=== PATIENT | male | born 1990 | race Caucasian/White ===

== ENCOUNTER 2020-10-01 13:18 | Emergency (ER) | payer OTHER, SELFPAY ==
[2020-10-01 13:25] VITALS: BP 152/100; PULSE 88; RESP 16; TEMP 37.2; O2SAT 97; BMI 29.9
--- NOTE | 2020-10-01 13:46 | ED.MALEGU ---
HPI - Male Genitourinary General Chief complaint: Urogenital-Male Stated complaint: BURNING UPON URINATION Time Seen by Provider: 10/01/20 13:46 Source: patient Mode of arrival: ambulatory Limitations: no limitations History of Present Illness HPI Narrative: 30-year-old male came in for evaluation for dysuria. Dysuria started since this morning, no penile discharge, never had UTI in past, patient is sexually active with 2 partners with concern of STD, rash or lesion on the penis. No fever, no chills. No abdominal pain, no flank pain. Related Data Allergies Allergy/AdvReac Type Severity Reaction Status Date / Time No Known Allergies Allergy Verified 10/01/20 14:24 Review of Systems Review of Systems: All other systems are reviewed and are negative Constitutional: Reports as per HPI and Reports no additional constitutional complaints Eyes: Reports as per HPI and Reports no additional eye complaints Reports system reviewed and no additional complaints, except as documented Cardiovascular: Reports as per HPI and Reports no additional cardiovascular complaints Respiratory: Reports as per HPI and Reports no additional respiratory complaints Gastrointestinal: Reports as per HPI and Reports no additional gastrointestinal complaints Genitourinary: Reports no additional female genitourinary complaints Musculoskeletal: Reports no additional musculoskeletal complaints Skin/Breast: Reports system reviewed and no additional complaints, except as docu Psychiatric: Reports no additional psychiatric complaints Endocrine: Reports no additional endocrine complaints Hematologic/Lymphatic: Reports no additional hematologic/lymphatic complaints Allergic/Immunologic: Reports no additional allergic/immunologic complaints Reports system reviewed and no additional complaints, except as documented and Reports Abnormal speech present [facility] Social History Social History Advance Directives: No Advance Directives Information Provided: No Physical Exam Vital Signs: Vital Signs: Last Vital Signs Temp 98.9 F 10/01/20 13:25 Pulse 88 10/01/20 13:25 Resp 16 10/01/20 13:25 BP 152/100 H 10/01/20 13:25 Pulse Ox 97 10/01/20 13:25 Body Mass Index 29.9 Vital signs have been reviewed as appeared to be correct. Blood pressure normal. Heart rate normal. Respiration rate normal. Temperature normal. Oxygen saturation normal. Appearance: Alert. Oriented X3. No acute distress. Head: Normal external exam. Normocephalic. Atraumatic. No Ly signs noted. No raccoon eyes noted Eyes: PERRLA. EOMI. Conjunctiva and sclera normal. Eyelids normal. ENT: TM's Normal. Pharynx normal. Uvula midline. Moist mucous membranes. No trismus noted. No drooling noted. No muffled voice noted. Neck: Normal inspection. Neck supple. FROM. No adenopathy. Thyroid Normal. No meningeal signs. No neck mass noted. CVS: Normal heart rate and rhythm. Heart sound normal. No murmurs noted. Pulses normal throughout. Respiratory: No respiratory distress. Painless inspiration. Breath sounds normal. No wheezes/rales/rhonchi noted. Chest nontender. No accessory muscle usage noted or decreased air movement noted. Abdomen: Soft and nontender. Bowel sounds normal in all 4 quadrants. No distention noted. No organomegaly noted. No visible injury noted. Back: No CVA tenderness. Full range of motion noted. Skin: Skin warm and dry. Normal skin color. Normal skin turgor. No rashes/lesions/lacerations noted. Extremities: No lower extremity edema. Extremities exhibit normal range of motion. Extremities nontender. Neuro: Oriented X 3. No motor deficit. No sensory deficit. Reflexes normal. Course Course Course Narrative: Assessment and plan. 30-year-old male came in with dysuria, patient had 2 sexual partner, no penile discharge or discrete sign or symptoms for STDs, will wait for urine test for STDs before treatment. [facility] - Male Genitourinary Lab Data Attestation: I reviewed the patient's lab results. Labs: Lab Results 10/01/20 Range/Units 14:10 Urine Color YELLOW Urine Appearance HAZY Urine pH 8.5 H (5.0-8.0) Ur Specific [place] 1.015 (1.005-1.025) Urine Protein 1+ H (NEG-TRACE) MG/DL Urine Glucose (UA) NEG (NEG) MG/DL Urine Ketones NEG (NEG) MG/DL Urine Blood NEG (NEG) Urine Nitrite NEG (NEG) Ur Leukocyte Esterase NEG (NEG) Urine RBC 0 (0) /HPF Urine WBC 1-4 (0-4) /HPF Ur Squamous Epith Cells TRACE /LPF Amorphous Sediment 1+ /LPF Urine Bacteria Not Reportable Urine Mucus 1+ /LPF Discharge Plan Discharge Clinical Impression: Dysuria Patient Disposition: Home, Self-Care Instructions: Dysuria (ED) Referrals: Raheem Nam MD [Primary Care Provider] - 2 days
[2020-10-01 14:17] LABS: Glucose Urine UA NEG (NEG); Leukocyte Esterase Urine NEG (NEG); Nitrite Urine NEG (NEG); PH 8.5 (5.0-8.0); Specific Gravity - Urine 1.015 (1.005-1.025); Urine Blood NEG (NEG); Urine Ketones NEG (NEG)
[2020-10-01 14:19] LABS: Appearance Urine HAZY; Color Urine YELLOW; Urine Protein 1+ MG/DL (NEG-TRACE)
[2020-10-01 14:30] LABS: Amorphous Sediment Urine 1+ /LPF; Mucus Urine 1+ /LPF; RBC Urine 0 /HPF (0); Squamous Epithelial Cell Urine TRACE /LPF
[2020-10-01 18:33] LABS: CT PCR NOT DETECTED (Not Detect.); NG PCR DETECTED (Not Detect.)
== END 2020-10-01 15:28 | disposition home or self-care (01) ==
PROVIDERS: Emergency Provider Emergency Medicine; PCP Internal Medicine
DX: R30.0 Dysuria (principal)
CPT/HCPCS: 81001; 87491; 87591; 99284

== ENCOUNTER 2020-10-02 23:36 | Emergency (ER) | payer OTHER, SELFPAY ==
--- NOTE | 2020-10-03 01:29 | ED_ITS ---
HPI - Male Genitourinary General Stated complaint: ?uti Time Seen by Provider: 10/03/20 00:14 Source: patient Mode of arrival: ambulatory Limitations: no limitations History of Present Illness MD Complaint: penile discharge and dysuria Onset (ago): day(s) (2) Duration: progressively worsening Location: penis Severity: mild Quality: burning Relieving factors: urination Exacerbating factors: none Context: new sexual partner Associated symptoms: Reports discharge and dysuria Related Data Previous Rx's Medication Instructions Recorded doxycycline hyclate 100 mg PO BID 10 Days #20 cap 10/03/20 Allergies Allergy/AdvReac Type Severity Reaction Status Date / Time No Known Allergies Allergy Verified 10/01/20 14:24 Review of Systems Review of Systems: Constitutional : No Weight loss, No Fever, No Chills ENT/Mouth : No sore throat, No Rhinorrhea Eyes: No Swelling, No Redness Cardiovascular : No Chest Pain, No SOB Respiratory : No Cough, No Sputum Gastrointestinal : Positive Nausea, Positive Vomiting Genitourinary : pos Dysuria, pos drainage Musculoskeletal : No joint pain, No Myalgias, No Joint Swelling Skin : No Skin Lesions, No rash Neuro : No Weakness, No Numbness Psych : No Anxiety/Panic, No Depression PMFSH Past Medical History Attestation statement: The following information was validated with the patient. Medical History (Updated 10/03/20 @ 01:40 by Danisha Patel DO) No active medical problems Social History Social History (Updated 10/03/20 @ 01:41 by Danisha Patel DO) Smoking Status: Never smoker Advance Directives: No Advance Directives Information Provided: No Physical Exam Vital Signs: Appearance: Alert. Oriented X3. No acute distress. Eyes: Pupils equal, round and reactive to light. ENT: Pharynx normal. Neck: Normal inspection. CVS: Normal heart rate and rhythm. Respiratory: No respiratory distress. Abdomen: Soft and nontender. Skin: Skin warm and dry. Normal skin color. Extremities: No lower extremity edema. Neuro: Oriented X 3. No motor deficit. No sensory deficit. MDM - Male Genitourinary MDM Narrative Medical decision making narrative: 30 yo male unprotected sex 2 weeks ago here with dysuria and penile discharge - will obtain UA and G+C, treat for gonorrhea and chlamydia, given instructions [facility] Discharge Plan Discharge Clinical Impression: Exposure to STD Patient Disposition: Home, Self-Care Instructions: Sexually Transmitted Diseases (ED) Additional Instructions: return to ED for any worsening symptoms or concerns you were treated for gonorrhea with a shot, take all antibiotics to clear poss ible chlamydia, practice safe sex, inform partners for further testing including HIV [facility] Prescriptions: New doxycycline hyclate 100 mg capsule 100 mg PO BID 10 Days Qty: 20 RF: 0 Stand Alone Forms: Work/School Release
[2020-10-03 01:46] VITALS: BP 163/115; PULSE 81; RESP 16; TEMP 37; O2SAT 98; BMI 29.9
[2020-10-03 01:50] LABS: Glucose Urine UA NEG (NEG); Leukocyte Esterase Urine NEG (NEG); Nitrite Urine NEG (NEG); Specific Gravity - Urine 1.025 (1.005-1.025); Urine Blood NEG (NEG); Urine Ketones NEG (NEG); Urine Protein TRACE MG/DL (NEG-TRACE)
[2020-10-03 01:51] LABS: Appearance Urine CLEAR; Color Urine YELLOW
[2020-10-03] MEDS: cefTRIAXone sodium 500 MG, Lidocaine HCl 1 % MPF 1 ML IM (02:00)
[2020-10-03 07:45] LABS: CT PCR NOT DETECTED (Not Detect.); NG PCR DETECTED (Not Detect.)
== END 2020-10-03 02:09 | disposition home or self-care (01) ==
PROVIDERS: Emergency Provider Emergency Medicine
DX: R30.0 Dysuria (principal); Z20.2 Contact with and (suspected) exposure to infections with a predominantly sexual mode of transmission; R36.9 Urethral discharge, unspecified; Z79.899 Other long term (current) drug therapy
CPT/HCPCS: 81003; 87491; 87591; 99284; J0696

== ENCOUNTER 2020-10-25 19:34 | Emergency (ER) | payer OTHER, SELFPAY ==
--- NOTE | ~2020-10-25 | XR_ITS ---
EXAMINATION: XR CHEST CLINICAL INFORMATION: Fever COMPARISON: 04/15/2018 TECHNIQUE: Frontal view of the chest was obtained. FINDINGS: Lung volumes are symmetric. No focal consolidation is seen. No evidence of pneumothorax, pleural effusion, or pulmonary edema. The cardiomediastinal contour is unremarkable. No acute osseous findings are seen. XR/XR chest 1V IMPRESSION: No acute cardiopulmonary findings.
[2020-10-25 21:13] VITALS: BP 181/119; PULSE 88; RESP 18; TEMP 36.8; O2SAT 98; BMI 29.9
[2020-10-25 21:43] LABS: MANUAL DIFF FLAG NO
--- NOTE | 2020-10-25 21:44 | PC.NURSE ---
pt brought to room and placed on product coordinator. NSR 84 bpm. pt not experiencing any chest discomfort or palpitations. pt reports that he has been eating fast food for the past 2 weeks.
[2020-10-25 21:45] LABS: Basophils Percent Auto 0.5 % (0-2); Eosinophils Absolute Auto 0.1 X10*3/uL (0.0-0.4); Eosinophils Percent Auto 1.8 % (0-4); Hematocrit 52.5 % (42-52); Hemoglobin 16.5 g/dl (14.0-18.0); Imm Gran Abs Auto 0.08 X10*3/uL (0.00-0.03); Lymphocytes Absolute Auto 1.2 X10*3/uL (1.2-4.9); Lymphocytes Percent Auto 15.9 % (20-40); Mean Corpuscular HGB Conc 31.4 g/dl (31.0-36.0); Mean Corpuscular Hemoglobin 25.2 pg (27.0-33.0); Mean Corpuscular Volume 80.2 fL (80-98); Mean Platelet Volume 9.8 fL (9.4-12.4); Monocytes Absolute Auto 0.4 X10*3/uL (0.1-1.2); Monocytes Percent Auto 5.2 % (2-11); Neutrophils Absolute Auto 5.9 X10*3/uL (2.0-8.3); Neutrophils Percent Auto 75.6 % (45-73); Platelet Count 293 X10*3/uL (160-400); Red Blood Count 6.55 X10*6/uL (4.60-5.80); Red Cell Distribution Width 14.5 % (11.0-16.0); White Blood Count 7.7 X10*3/uL (4.8-10.8)
--- NOTE | 2020-10-25 21:48 | ECG_ITS ---
Test Reason : HIGH BLOOD PRESSURE Blood Pressure : / mmHG Vent. Rate : 084 BPM Atrial Rate : 084 BPM P-R Int : 170 ms QRS Dur : 080 ms QT Int : 348 ms P-R-T Axes : 051 037 026 degrees QTc Int : 411 ms Normal sinus rhythm Nonspecific T wave abnormality Abnormal ECG No previous ECGs available Referred By: Generic ED Physician Electronically Signed By:JG OSEGUERA MD
[2020-10-25 21:49] VITALS: BP 178/22; PULSE 85; RESP 14; O2SAT 99
--- NOTE | 2020-10-25 22:07 | PC.NURSE ---
EKG documented for ID #[id number]
[2020-10-25 22:10] LABS: Anion Gap 13 (12-20); Blood Urea Nitrogen 14 mg/dL (9-16); Calcium 9.7 mg/dL (8.4-10.2); Carbon Dioxide 26 mmol/L (22-29); Chloride 105 mmol/L (96-108); Creatinine Clr Calc Pharmacy 98.3; Estimated Glomerular Filt Rate > 60; Glucose Random 96 mg/dL (60-115); Potassium 4.3 mmol/L (3.3-5.1); Sodium 140 mmol/L (135-145)
[2020-10-25 22:17] LABS: Troponin-I High Sensitivity < 3.5 ng/L (<3.5-35.0)
--- NOTE | 2020-10-25 22:18 | ED_ITS ---
HPI - General Adult General Chief complaint: General Medical Stated complaint: high bp Time Seen by Provider: 10/25/20 22:17 History of Present Illness HPI narrative: Patient is a 30-year-old male presented today while trying to get a COVID vaccine patient was noted by urgent care to have an elevated blood pressure he has no symptoms. He denies recreational drug use. Patient came to the emergency department from the urgent care. Patient received the Jannsen COVID vaccine from urgent care Related Data Previous Rx's Medication Instructions Recorded doxycycline hyclate 100 mg PO BID 10 Days #20 cap 10/03/20 amlodipine 5 mg PO DAILY #10 tab 10/26/20 Allergies Allergy/AdvReac Type Severity Reaction Status Date / Time No Known Allergies Allergy Verified 10/01/20 14:24 Review of Systems Review of Systems: Constitutional: No Weight loss, No Fever, No Chills, No Night Sweats, No Fatigue, No Malaise ENT/Mouth: No Hearing loss, No Ear Pain, No Nasal Congestion, No Sinus Pain, No Hoarseness, No sore throat, No Rhinorrhea, No Swallowing Difficulty Eyes: No Eye Pain, No Swelling, No Redness, No Foreign Body, No Discharge, No Vision Changes Cardiovascular: No Chest Pain, No SOB, No Dyspnea on Exertion, No Orthopnea, No Edema, No Palpitations Respiratory: No Cough, No Sputum, No Wheezing, No Smoke Exposure, No Dyspnea Gastrointestinal: No Nausea, No Vomiting, No Diarrhea, No Constipation, No abdominal Pain, No Hematochezia, No Melena Genitourinary: no irregular bleeding, No Dysuria, No Urinary Frequency, No Hematuria, No Urinary Incontinence, No Urgency, No Flank Pain, No Urinary Flow Changes, No Hesitancy Musculoskeletal: No joint pain, No Myalgias, No Joint Swelling Skin: No Skin Lesions, No rash Neuro: No Weakness, No Numbness, No Paresthesias, No Loss of Consciousness, No Dizziness, No Headache Psych: No Anxiety/Panic, No Depression, No SI/HI/AH/VH, No Social Issues, Heme/Lymph: No Bruising, No Bleeding,No Lymphadenopathy Endocrine: No Polyuria, No Polydipsia, No Temperature Intolerance PMFSH Past Medical History Medical History No active medical problems No known health problems Social History Social History Advance Directives: No Advance Directives Information Provided: Yes Physical Exam Vital Signs: Vital Signs: Last Vital Signs Temp 100.3 F 10/26/20 04:55 Pulse 94 10/26/20 04:55 Resp 24 H 10/26/20 04:55 BP 143/93 H 10/26/20 04:55 Pulse Ox 93 10/26/20 04:55 Body Mass Index 29.9 Appearance: Alert. Oriented X3. No acute distress. Eyes: Pupils equal, round and reactive to light. ENT: Pharynx normal. Neck: Normal inspection. Neck supple. No lymph nodes noted. No crepitus CVS: Normal heart rate and rhythm. Pulses normal. Normal S1 and S2 Respiratory: No respiratory distress. Breath sounds normal. No Wheezing. No rales Abdomen: Soft and nontender. No rigidity. No distention. good BS x4 Skin: Skin warm and dry. Normal skin color. Normal skin turgor. Extremities: No lower extremity edema. Neurovascular intact to all extremities. No Lacerations. No Rash Neuro: Oriented X 3. No motor deficit. No sensory deficit. Moving all extermities. No slurred speech Medical Decision Making MDM Narrative Medical decision making narrative: Well-appearing no acute distress. Patient blood pressure is elevated. Totally asymptomatic. Patient's electrolytes are normal. EKG consistent with having right ventricular hypertrophy. Will give a dose amlodipine will monitor for the next 2 hours. Patient has a primary physician will suggest patient get close follow-up in the next 24-48 hours. While in the emergency department patient developed a fever up to 102. Patient had the Kush and Kush COVID vaccine. His platelet is normal. Given this is not an MRI and a base vaccine. Less likely patient had myocarditis versus pericarditis. Patient's troponin is negative and other indication patient did not have myocarditis. Patient is well appearing after Tylenol Motrin the temperature came down. Patient's blood pressure also came down. Will start patient on low dose of blood pressure medication. Will have patient closely follow with his primary physician. Currently in stable condition. Lab Data Result diagrams: 10/25/20 21:37 10/25/20 21:37 Labs: Lab Results 06/09/21 06/09/21 06/09/21 Range/Units 21:37 21:37 21:37 WBC 7.7 (4.8-10.8) X10*3/uL RBC 6.55 H (4.60-5.80) X10*6/uL Hgb 16.5 (14.0-18.0) g/dl Hct 52.5 H (42-52) % MCV 80.2 (80-98) fL MCH 25.2 L (27.0-33.0) pg MCHC 31.4 (31.0-36.0) g/dl RDW 14.5 (11.0-16.0) % Plt Count 293 (160-400) X10*3/uL MPV 9.8 (9.4-12.4) fL Immature Gran % (Auto) 1.0 H (0.0-0.4) % Neut % (Auto) 75.6 H (45-73) % Lymph % (Auto) 15.9 L (20-40) % [place] % (Auto) 5.2 (2-11) % Eos % (Auto) 1.8 (0-4) % Baso % (Auto) 0.5 (0-2) % Lymph # (Auto) 1.2 (1.2-4.9) X10*3/uL [place] # (Auto) 0.4 (0.1-1.2) X10*3/uL Eos # (Auto) 0.1 (0.0-0.4) X10*3/uL Baso # (Auto) 0.0 (0.0-0.2) X10*3/uL Abs Immat Gran (auto) 0.08 H (0.00-0.03) X10*3/uL Absolute Neuts (auto) 5.9 (2.0-8.3) X10*3/uL Absolute Nucleated RBC 0.000 (0.0-0.012) X10*3/uL Nucleated RBC % (auto) 0.0 (0.0-0.2) /100WBC Sodium 140 (135-145) mmol/L Potassium 4.3 (3.3-5.1) mmol/L Chloride 105 (96-108) mmol/L Carbon Dioxide 26 (22-29) mmol/L Anion Gap 13 (12-20) BUN 14 (9-16) mg/dL Creatinine 1.10 (0.5-1.4) mg/dL Estim Creat Clear Calc 98.3 Estimated GFR > 60 Random Glucose 96 (60-115) mg/dL Calcium 9.7 (8.4-10.2) mg/dL Troponin I High Sens < 3.5 (<3.5-35.0) ng/L COVID-19 ([facility]) (Negative) COVID-19 Clin Com 10/26/20 Range/Units 02:27 WBC (4.8-10.8) X10*3/uL RBC (4.60-5.80) X10*6/uL Hgb (14.0-18.0) g/dl Hct (42-52) % MCV (80-98) fL MCH (27.0-33.0) pg MCHC (31.0-36.0) g/dl RDW (11.0-16.0) % Plt Count (160-400) X10*3/uL MPV (9.4-12.4) fL Immature Gran % (Auto) (0.0-0.4) % Neut % (Auto) (45-73) % Lymph % (Auto) (20-40) % [place] % (Auto) (2-11) % Eos % (Auto) (0-4) % Baso % (Auto) (0-2) % Lymph # (Auto) (1.2-4.9) X10*3/uL [place] # (Auto) (0.1-1.2) X10*3/uL Eos # (Auto) (0.0-0.4) X10*3/uL Baso # (Auto) (0.0-0.2) X10*3/uL Abs Immat Gran (auto) (0.00-0.03) X10*3/uL Absolute Neuts (auto) (2.0-8.3) X10*3/uL Absolute Nucleated RBC (0.0-0.012) X10*3/uL Nucleated RBC % (auto) (0.0-0.2) /100WBC Sodium (135-145) mmol/L Potassium (3.3-5.1) mmol/L Chloride (96-108) mmol/L Carbon Dioxide (22-29) mmol/L Anion Gap (12-20) BUN (9-16) mg/dL Creatinine (0.5-1.4) mg/dL Estim Creat Clear Calc Estimated GFR Random Glucose (60-115) mg/dL Calcium (8.4-10.2) mg/dL Troponin I High Sens (<3.5-35.0) ng/L COVID-19 ([facility]) Negative (Negative) COVID-19 Clin Com See Note ECG Data Attestation: I personally reviewed and interpreted this ECG as follows: Interpretation: Sinus heart rate was 70 NV QRS QT within normal limits there is LVH noted. Discharge Plan Discharge Clinical Impression: Fever, COVID-19 vaccine administered, Hypertension Patient Disposition: Home, Self-Care Instructions: Hypertension (ED), COVID-19 (Coronavirus Disease 2019) (ED) Additional Instructions: Please follow-up with your primary doctor tomorrow for blood pressure check. Motrin Tylenol for fever. Please take your blood pressure medication. Prescriptions: New amlodipine 5 mg tablet 5 mg PO DAILY Qty: 10 RF: 0 No Action doxycycline hyclate 100 mg capsule 100 mg PO BID 10 Days Qty: 20 RF: 0 Referrals: Raheem Nam MD [Primary Care Provider] - 2 days
[2020-10-25 22:25] VITALS: BP 168/120; PULSE 95
[2020-10-25] MEDS: amLODIPine Besylate 5 MG TABLET PO (22:25)
[2020-10-25 22:26] VITALS: BP 168/120; PULSE 85; RESP 8; O2SAT 98
[2020-10-25 22:49] VITALS: BP 160/115; PULSE 95; RESP 16; O2SAT 96
[2020-10-26 00:02] VITALS: BP 160/120
[2020-10-26 00:11] VITALS: BP 160/120; PULSE 100
[2020-10-26] MEDS: amLODIPine Besylate 5 MG TABLET PO (00:11)
[2020-10-26 01:04] VITALS: TEMP 38.7
[2020-10-26] MEDS: Acetaminophen 325 MG TABLET 650 MG PO (01:07)
[2020-10-26] MEDS: 0.9 % Sodium Chloride 1,000 ML 999 ML IV (01:07)
[2020-10-26 02:06] VITALS: BP 164/116; PULSE 122; RESP 11; TEMP 39.2; O2SAT 97
--- NOTE | 2020-10-26 02:09 | PC.NURSE ---
PT ASKING TO HAVE HIS TEMPERATURE RECHECKED. TEMP 102.6. ICE PLACED BACK OF NECK AND FOREHEAD, ARMPITS.
--- NOTE | 2020-10-26 02:24 | PC.NURSE ---
PT EXPERIENCING MID ABDOMINAL PAIN AND NAUSEA. VOMIT X 1. MD AWARE.
[2020-10-26] MEDS: Ibuprofen 400 MG TABLET PO (02:25)
[2020-10-26] MEDS: ondansetron HCL 4 MG/2 ML VIAL IVPUSH (02:25)
[2020-10-26 02:48] LABS: COVID-19 Test Negative (Negative); IDNOW Serial# 9DD0AD1C
[2020-10-26 04:55] VITALS: BP 143/93; PULSE 94; RESP 24; TEMP 37.9; O2SAT 93
--- NOTE | 2020-10-26 06:46 | PC.NURSE ---
MD AT BEDSIDE AT TIME OF DISCHARGE, TO GO OVER INSTRUCTIONS.
== END 2020-10-26 06:47 | disposition home or self-care (01) ==
PROVIDERS: Emergency Provider Emergency Medicine Emergency Medical Services; PCP Internal Medicine
DX: R50.9 Fever, unspecified (principal); T50.B95A Adverse effect of other viral vaccines, initial encounter; Y92.039 Unspecified place in apartment as the place of occurrence of the external cause; I10 Essential (primary) hypertension
CPT/HCPCS: 36415; 71045; 80048; 84484; 85025; 87635; 93005; 96361; 96374; 99284; J2405

== ENCOUNTER 2020-12-11 13:56 | Emergency (ER) | payer OTHER, SELFPAY ==
[2020-12-11 14:25] VITALS: BP 184/126; PULSE 88; RESP 18; TEMP 37.1; O2SAT 97; BMI 29.1
[2020-12-11] MEDS: Ibuprofen 600 MG TABLET PO (14:33)
[2020-12-11 15:22] VITALS: BP 162/120; PULSE 64; RESP 18; O2SAT 98
[2020-12-11 15:52] VITALS: BP 169/113; PULSE 83; RESP 18; TEMP 36.7; O2SAT 99
--- NOTE | 2020-12-11 17:09 | ED.GENADULT ---
HPI - General Adult General Chief complaint: General Medical Stated complaint: blood in stool Time Seen by Provider: 12/11/20 17:09 Source: patient Mode of arrival: ambulatory Limitations: no limitations History of Present Illness HPI narrative: 30-year-old male came in for evaluation of painful hemorrhoid. This is a 30-year-old male who was had a bowel movement 2 days ago with constipation, noted that he has blood on the wipe papers, patient felt the beak mass in his rectal area, for the last 2 days he has been having severe rectal pain, worsening by bowel movement and bearing down. No bleeding now, vein is better slightly with ibuprofen or Tylenol. Patient never had this pain before. Related Data Previous Rx's Medication Instructions Recorded doxycycline hyclate 100 mg PO BID 10 Days #20 cap 10/03/20 amlodipine 5 mg PO DAILY #10 tab 10/26/20 oxycodone-acetaminophen [Percocet] 1 tab PO Q8H PRN #14 tab 12/11/20 Allergies Allergy/AdvReac Type Severity Reaction Status Date / Time No Known Allergies Allergy Verified 10/01/20 14:24 Review of Systems Review of Systems: All other systems are reviewed and are negative Constitutional: Reports as per HPI and Reports no additional constitutional complaints Eyes: Reports as per HPI and Reports no additional eye complaints Reports system reviewed and no additional complaints, except as documented Cardiovascular: Reports as per HPI and Reports no additional cardiovascular complaints Respiratory: Reports as per HPI and Reports no additional respiratory complaints Gastrointestinal: Reports as per HPI and Reports no additional gastrointestinal complaints Genitourinary: Reports no additional female genitourinary complaints Musculoskeletal: Reports no additional musculoskeletal complaints Skin/Breast: Reports system reviewed and no additional complaints, except as docu Psychiatric: Reports no additional psychiatric complaints Endocrine: Reports no additional endocrine complaints Hematologic/Lymphatic: Reports no additional hematologic/lymphatic complaints Allergic/Immunologic: Reports no additional allergic/immunologic complaints Reports system reviewed and no additional complaints, except as documented and Reports Abnormal speech present [facility] Past Medical History Medical History No active medical problems No known health problems Social History Social History Advance Directives: No Advance Directives Information Provided: No Physical Exam Vital Signs: Vital Signs: Last Vital Signs Temp 98.1 F 12/11/20 15:52 Pulse 83 12/11/20 15:52 Resp 18 12/11/20 15:52 BP 169/113 H 12/11/20 15:52 Pulse Ox 99 12/11/20 15:52 Body Mass Index 29.1 Vital signs have been reviewed as appeared to be correct. Blood pressure elevated patient appear uncomfortable from the hemorrhoid.. Heart rate normal. Respiration rate normal. Temperature normal. Oxygen saturation normal. Appearance: Alert. Oriented X3. No acute distress. Head: Normal external exam. Normocephalic. Atraumatic. No Ly signs noted. No raccoon eyes noted Eyes: PERRLA. EOMI. Conjunctiva and sclera normal. Eyelids normal. ENT: TM's Normal. Pharynx normal. Uvula midline. Moist mucous membranes. No trismus noted. No drooling noted. No muffled voice noted. Neck: Normal inspection. Neck supple. FROM. No adenopathy. Thyroid Normal. No meningeal signs. No neck mass noted. CVS: Normal heart rate and rhythm. Heart sound normal. No murmurs noted. Pulses normal throughout. Respiratory: No respiratory distress. Painless inspiration. Breath sounds normal. No wheezes/rales/rhonchi noted. Chest nontender. No accessory muscle usage noted or decreased air movement noted. Abdomen: Soft and nontender. Bowel sounds normal in all 4 quadrants. No distention noted. No organomegaly noted. No visible injury noted. Rectal exam: 1 x 3 cm hemorrhoid at 09:00 o'clock area, no thrombosis, no bleed, tender to touch, no fluctuation around. Back: No CVA tenderness. Full range of motion noted. Skin: Skin warm and dry. Normal skin color. Normal skin turgor. No rashes/lesions/lacerations noted. Extremities: No lower extremity edema. Extremities exhibit normal range of motion. Extremities nontender. Neuro: Oriented X 3. No motor deficit. No sensory deficit. Reflexes normal. Course Course Course Narrative: 30 years old male came in with noncomplicated external rectal hemorrhoid. Will prescribe analgesia, drink plenty of fluid to avoid constipation, contact surgeon to consider surgical removal. Discharge Plan Discharge Clinical Impression: Hemorrhoid Qualifiers: Hemorrhoid type: unspecified Qualified Code(s): K64.9 - Unspecified hemorrhoids Patient Disposition: Home, Self-Care Instructions: Hemorrhoids (ED) Prescriptions: New oxycodone-acetaminophen [Percocet] 5-325 mg tablet 1 tab PO Q8H PRN (Reason: pain) Qty: 14 RF: 0 No Action doxycycline hyclate 100 mg capsule 100 mg PO BID 10 Days Qty: 20 RF: 0 amlodipine 5 mg tablet 5 mg PO DAILY Qty: 10 RF: 0 Referrals: Weston Carballo MD [Physician] - 2 days Stand Alone Forms: Work/School Release
== END 2020-12-11 17:24 | disposition home or self-care (01) ==
LOC: HO.ED 17:13
PROVIDERS: Emergency Provider Emergency Medicine; PCP Internal Medicine
DX: K64.9 Unspecified hemorrhoids (principal); K62.89 Other specified diseases of anus and rectum
CPT/HCPCS: 99283

== ENCOUNTER → 2020-12-18 14:07 | Outpatient (BNVA) | payer OTHER, SELFPAY | PROVIDERS: PCP Internal Medicine; Visit Provider Surgery | DX: K64.5 Perianal venous thrombosis (principal) | CPT/HCPCS: 46600; 99202 ==

== ENCOUNTER 2022-08-27 19:33 | Emergency (ER) | payer OTHER, SELFPAY ==
--- NOTE | 2022-08-27 | ECG_ITS ---
Test Reason : CHEST PAIN Blood Pressure : / mmHG Vent. Rate : 134 BPM Atrial Rate : 134 BPM P-R Int : 142 ms QRS Dur : 072 ms QT Int : 286 ms P-R-T Axes : 046 034 003 degrees QTc Int : 427 ms Sinus tachycardia T wave abnormality, consider inferior ischemia Abnormal ECG When compared with ECG of 25-OCT-2020 21:58, Vent. rate has increased BY 50 BPM Referred By: Generic ED Physician Electronically Signed By:JG OSEGUERA MD
--- NOTE | ~2022-08-27 | XR_ITS ---
EXAMINATION: XR CHEST CLINICAL INFORMATION: Cough and fever. COMPARISON: 10/26/2020 chest radiograph. TECHNIQUE: Frontal view of the chest was obtained. FINDINGS: No significant abnormality is noted involving the heart, lungs, mediastinum, bony thorax or soft tissues. XR/XR chest 1V IMPRESSION: No acute cardiopulmonary process.
--- NOTE | 2022-08-27 19:47 | ED_ITS ---
HPI - URI/Sore Throat General Chief Complaint: Chest Pain <STEPHANI Mccarthy - Last Filed: 08/27/22 19:55> Stated Complaint: chest pain <STEPHANI Mccarthy - Last Filed: 08/27/22 19:55> Time Seen by Provider: 08/28/22 00:43 <STEPHANI Mccarthy - Last Filed: 08/27/22 19:55> Source: patient <Benny Crowell MD - Last Filed: 08/28/22 03:22> Mode of arrival: ambulatory <Benny Crowell MD - Last Filed: 08/28/22 03:22> Limitations: no limitations <Benny Crowell MD - Last Filed: 08/28/22 03:22> History of Present Illness HPI Narrative: Patient with no significant past medical history nonsmoker been coughing with fever wheezing since early today getting weaker purulent phlegm expectorated temperature of 102.8 degrees at home. No other family member sick on arrival patient was tachycardic 105 beats per minute temperature 101.2 degrees <Benny Crowell MD - Last Filed: 08/28/22 03:22> Related Data Home Medications: Previous Rx's Medication Instructions Recorded doxycycline hyclate 100 mg capsule 100 mg PO BID 10 days #20 caps 10/03/20 amlodipine 5 mg tablet 5 mg PO DAILY #10 tabs 10/26/20 oxycodone-acetaminophen 5 mg-325 1 tab PO Q8H PRN pain #14 tabs 12/11/20 mg tablet (Percocet) albuterol sulfate 90 mcg/actuation 2 puff inhalation Q4-6H PRN 08/28/22 aerosol inhaler (ProAir HFA) shortness of breath or wheezing #8.5 grams cefuroxime axetil 500 mg tablet 500 mg PO BID #20 tabs 08/28/22 codeine 10 mg-guaifenesin 100 mg/5 10 ml PO Q6H PRN cough #237 mL 08/28/22 mL oral liquid prednisone 20 mg tablet 40 mg PO DAILY #10 tabs 08/28/22 <STEPHANI Mccarthy - Last Filed: 08/27/22 19:55> Allergies/Adverse Reactions: Allergies Allergy/AdvReac Type Severity Reaction Status Date / Time No Known Allergies Allergy Verified 12/18/20 14:16 <STEPHANI Mccarthy - Last Filed: 08/27/22 19:55> Review of Systems Review of Systems: Yes all other systems are reviewed and are negative <Benny Crowell MD - Last Filed: 08/28/22 03:22> [facility] Past Medical History Medical History: Medical History No active medical problems No known health problems Thrombosed external hemorrhoid <STEPHANI Mccarthy - Last Filed: 08/27/22 19:55> Social History Social History: Social History Alcohol intake: never Smoked in Last 30 Days: No Use of substances other than those prescribed or required for medical reasons: No Advance Directives: No Advance Directives Information Provided: Yes <STEPHANI Mccarthy - Last Filed: 08/27/22 19:55> Physical Exam Vital Signs: Vital Signs: Last Vital Signs Temp 98.7 F 08/28/22 02:38 Pulse 96 08/28/22 03:16 Resp 18 08/28/22 03:16 BP 110/59 L 08/28/22 02:38 Pulse Ox 97 08/28/22 03:16 O2 Del Method Room Air 08/28/22 03:16 BMI result Body Mass Index 30.7 <STEPHANI Mccarthy - Last Filed: 08/27/22 19:55> Vital Signs: Last Vital Signs Temp 98.7 F 08/28/22 02:38 Pulse 96 08/28/22 03:16 Resp 18 08/28/22 03:16 BP 110/59 L 08/28/22 02:38 Pulse Ox 97 08/28/22 03:16 O2 Del Method Room Air 08/28/22 03:16 BMI result Body Mass Index 30.7 <Benny Crowell MD - Last Filed: 08/28/22 03:22> Appearance: Alert. Oriented X3. No acute distress. ENT: Pharynx normal. Oral Mucosa moist Neck: Normal inspection. Neck supple. CVS: Normal heart rate and rhythm. Pulses normal. Respiratory: No respiratory distress. Equal air entry bilateral, prolonged expiration Abdomen: Soft and nontender. Bowel sounds are present, no mass palpable, no CVA tenderness Skin: Skin warm and dry. Normal skin color. Normal skin turgor. Extremities: No lower extremity edema. No calf tenderness Neuro: Oriented X 3. No motor deficit. <Benny Crowell MD - Last Filed: 08/28/22 03:22> Course Course Course Narrative: RME--32yo M c/o productive cough, fever T-max 101 degrees, chest pain worse with cough x today. Reports took Tylenol 2.5 hours [employer]. Denies recent travel, sick contacts Febrile 101.2 (temporally), tachycardic likely from fever, lungs CTA, no pedal edema. Low suspicion for severe sepsis as likely viral etiology EKG, Labs, COVID/flu, CXR, PO Motrin ordered <STEPHANI Mccarthy - Last Filed: 08/27/22 19:55> Medications Administered Discontinued Medications Generic Name Dose Route Start Last Admin Trade Name Leif PRN Reason Stop Dose Admin Acetaminophen 975 mg 08/28/22 01:29 08/28/22 01:35 Acetaminophen 325 Mg Tablet PO 08/28/22 01:30 975 mg ONCE ONE Administration Albuterol Sulfate 2.5 mg/ 0 mg 08/28/22 00:49 08/28/22 00:58 Albuterol/Ipratropium 3 ml INHALE 08/28/22 00:50 2.5 each ONCE ONE Administration Guaifenesin/Codeine Phosphate 10 ml 08/28/22 00:49 08/28/22 01:19 Guaifen/Codeine Sf 200/20/10ml 10 Ml Liquid PO 08/28/22 00:50 10 ml ONCE ONE Administration Sodium Chloride 1,000 mls @ 999 mls/hr 08/28/22 00:49 08/28/22 02:34 Ns IV 08/28/22 01:49 Infused .Q1H1M ONE Infusion Ceftriaxone Sodium 1 gm/ 50 mls @ 100 mls/hr 08/28/22 00:49 08/28/22 02:34 Sodium Chloride IV 08/28/22 01:18 Infused ONCE ONE Infusion Ibuprofen 600 mg 08/27/22 19:47 08/28/22 00:33 Ibuprofen 600 Mg Tablet PO 08/27/22 19:48 600 mg ONCE ONE Administration Methylprednisolone Sodium Succinate 125 mg 08/28/22 00:49 08/28/22 01:19 Methylprednisolone Sod Succ 125 Mg/2 Ml Vial IVPUSH 08/28/22 00:50 125 mg ONCE ONE Administration Ondansetron HCl 4 mg 08/28/22 01:25 08/28/22 01:28 Ondansetron Hcl 4 Mg/2 Ml Vial IVPUSH 08/28/22 01:26 4 mg ONCE ONE Administration <STEPHANI Mccarthy - Last Filed: 08/27/22 19:55> Medications Administered Discontinued Medications Generic Name Dose Route Start Last Admin Trade Name Freq PRN Reason Stop Dose Admin Acetaminophen 975 mg 08/28/22 01:29 08/28/22 01:35 Acetaminophen 325 Mg Tablet PO 08/28/22 01:30 975 mg ONCE ONE Administration Albuterol Sulfate 2.5 mg/ 0 mg 08/28/22 00:49 08/28/22 00:58 Albuterol/Ipratropium 3 ml INHALE 08/28/22 00:50 2.5 each ONCE ONE Administration Guaifenesin/Codeine Phosphate 10 ml 08/28/22 00:49 08/28/22 01:19 Guaifen/Codeine Sf 200/20/10ml 10 Ml Liquid PO 08/28/22 00:50 10 ml ONCE ONE Administration Sodium Chloride 1,000 mls @ 999 mls/hr 08/28/22 00:49 08/28/22 02:34 Ns IV 08/28/22 01:49 Infused .Q1H1M ONE Infusion Ceftriaxone Sodium 1 gm/ 50 mls @ 100 mls/hr 08/28/22 00:49 08/28/22 02:34 Sodium Chloride IV 08/28/22 01:18 Infused ONCE ONE Infusion Ibuprofen 600 mg 08/27/22 19:47 08/28/22 00:33 Ibuprofen 600 Mg Tablet PO 08/27/22 19:48 600 mg ONCE ONE Administration Methylprednisolone Sodium Succinate 125 mg 08/28/22 00:49 08/28/22 01:19 Methylprednisolone Sod Succ 125 Mg/2 Ml Vial IVPUSH 08/28/22 00:50 125 mg ONCE ONE Administration Ondansetron HCl 4 mg 08/28/22 01:25 08/28/22 01:28 Ondansetron Hcl 4 Mg/2 Ml Vial IVPUSH 08/28/22 01:26 4 mg ONCE ONE Administration <Benny Crowell MD - Last Filed: 08/28/22 03:22> Medical Decision Making Medical Decision Making [facility] [place] Narrative: Patient acute bronchitis workup is negative centrally discharge patient on antibiotics prednisone inhaler <Benny Crowell MD - Last Filed: 08/28/22 03:22> Lab Data [facility] [place] Lab Attestation statement: I reviewed the patient's lab results. <Benny Crowell MD - Last Filed: 08/28/22 03:22> Result Diagrams: 08/27/22 19:45 08/27/22 19:45 <STEPHANI Mccarthy - Last Filed: 08/27/22 19:55> Labs: Lab Results 08/27/22 08/27/22 08/27/22 Range/Units 19:45 19:45 19:45 WBC 12.1 H (4.8-10.8) X10*3/uL RBC 6.02 H (4.60-5.80) X10*6/uL Hgb 16.2 (14.0-18.0) g/dl Hct 48.3 (42.0-52.0) % MCV 80.2 (80.0-98.0) fL MCH 26.9 L (27.0-33.0) pg MCHC 33.5 (31.0-36.0) g/dl RDW 13.3 (11.0-16.0) % Plt Count 178 (160-400) X10*3/uL MPV 9.9 (9.4-12.4) fL Absolute Nucleated RBC 0.000 (0.0-0.012) X10*3/uL Nucleated RBC % (auto) 0.0 (0.0-0.2) /100WBC Sodium 139 (135-145) mmol/L Potassium 3.8 (3.3-5.1) mmol/L Chloride 105 (96-108) mmol/L Carbon Dioxide 22 (22-29) mmol/L Anion Gap 16 (12-20) BUN 11 (9-16) mg/dL Creatinine 1.33 (0.5-1.4) mg/dL Estim Creat Clear Calc 80.9 Estimated GFR > 60 Random Glucose 99 (60-115) mg/dL Calcium 9.0 D (8.4-10.2) mg/dL Total Bilirubin 0.8 (0.0-1.0) mg/dL AST 19 (5-37) U/L ALT 25 (0-40) U/L Alkaline Phosphatase 63 (39-117) U/L Troponin I High Sens < 2.7 (<3.5-35.0) ng/L Total Protein 7.4 (6.5-8.0) g/dL Albumin 4.4 (3.5-5.0) g/dL COVID-19 ([facility]) (Negative) COVID-19 Clin Com Influenza Type A (NIC) (Negative) Influenza Type B (NIC) (Negative) Influenza A & B Note 08/27/22 08/27/22 Range/Units 19:51 19:51 WBC (4.8-10.8) X10*3/uL RBC (4.60-5.80) X10*6/uL Hgb (14.0-18.0) g/dl Hct (42.0-52.0) % MCV (80.0-98.0) fL MCH (27.0-33.0) pg MCHC (31.0-36.0) g/dl RDW (11.0-16.0) % Plt Count (160-400) X10*3/uL MPV (9.4-12.4) fL Absolute Nucleated RBC (0.0-0.012) X10*3/uL Nucleated RBC % (auto) (0.0-0.2) /100WBC Sodium (135-145) mmol/L Potassium (3.3-5.1) mmol/L Chloride (96-108) mmol/L Carbon Dioxide (22-29) mmol/L Anion Gap (12-20) BUN (9-16) mg/dL Creatinine (0.5-1.4) mg/dL Estim Creat Clear Calc Estimated GFR Random Glucose (60-115) mg/dL Calcium (8.4-10.2) mg/dL Total Bilirubin (0.0-1.0) mg/dL AST (5-37) U/L ALT (0-40) U/L Alkaline Phosphatase (39-117) U/L Troponin I High Sens (<3.5-35.0) ng/L Total Protein (6.5-8.0) g/dL Albumin (3.5-5.0) g/dL COVID-19 ([facility]) Negative (Negative) COVID-19 Clin Com See Note Influenza Type A (NIC) Negative (Negative) Influenza Type B (NIC) Negative (Negative) Influenza A & B Note See Note <STEPHANI Mccarthy - Last Filed: 08/27/22 19:55> Lab Results 08/27/22 08/27/22 08/27/22 Range/Units 19:45 19:45 19:45 WBC 12.1 H (4.8-10.8) X10*3/uL RBC 6.02 H (4.60-5.80) X10*6/uL Hgb 16.2 (14.0-18.0) g/dl Hct 48.3 (42.0-52.0) % MCV 80.2 (80.0-98.0) fL MCH 26.9 L (27.0-33.0) pg MCHC 33.5 (31.0-36.0) g/dl RDW 13.3 (11.0-16.0) % Plt Count 178 (160-400) X10*3/uL MPV 9.9 (9.4-12.4) fL Absolute Nucleated RBC 0.000 (0.0-0.012) X10*3/uL Nucleated RBC % (auto) 0.0 (0.0-0.2) /100WBC Sodium 139 (135-145) mmol/L Potassium 3.8 (3.3-5.1) mmol/L Chloride 105 (96-108) mmol/L Carbon Dioxide 22 (22-29) mmol/L Anion Gap 16 (12-20) BUN 11 (9-16) mg/dL Creatinine 1.33 (0.5-1.4) mg/dL Estim Creat Clear Calc 80.9 Estimated GFR > 60 Random Glucose 99 (60-115) mg/dL Calcium 9.0 D (8.4-10.2) mg/dL Total Bilirubin 0.8 (0.0-1.0) mg/dL AST 19 (5-37) U/L ALT 25 (0-40) U/L Alkaline Phosphatase 63 (39-117) U/L Troponin I High Sens < 2.7 (<3.5-35.0) ng/L Total Protein 7.4 (6.5-8.0) g/dL Albumin 4.4 (3.5-5.0) g/dL COVID-19 ([facility]) (Negative) COVID-19 Clin Com Influenza Type A (NIC) (Negative) Influenza Type B (NIC) (Negative) Influenza A & B Note 08/27/22 08/27/22 Range/Units 19:51 19:51 WBC (4.8-10.8) X10*3/uL RBC (4.60-5.80) X10*6/uL Hgb (14.0-18.0) g/dl Hct (42.0-52.0) % MCV (80.0-98.0) fL MCH (27.0-33.0) pg MCHC (31.0-36.0) g/dl RDW (11.0-16.0) % Plt Count (160-400) X10*3/uL MPV (9.4-12.4) fL Absolute Nucleated RBC (0.0-0.012) X10*3/uL Nucleated RBC % (auto) (0.0-0.2) /100WBC Sodium (135-145) mmol/L Potassium (3.3-5.1) mmol/L Chloride (96-108) mmol/L Carbon Dioxide (22-29) mmol/L Anion Gap (12-20) BUN (9-16) mg/dL Creatinine (0.5-1.4) mg/dL Estim Creat Clear Calc Estimated GFR Random Glucose (60-115) mg/dL Calcium (8.4-10.2) mg/dL Total Bilirubin (0.0-1.0) mg/dL AST (5-37) U/L ALT (0-40) U/L Alkaline Phosphatase (39-117) U/L Troponin I High Sens (<3.5-35.0) ng/L Total Protein (6.5-8.0) g/dL Albumin (3.5-5.0) g/dL COVID-19 ([facility]) Negative (Negative) COVID-19 Clin Com See Note Influenza Type A (NIC) Negative (Negative) Influenza Type B (NIC) Negative (Negative) Influenza A & B Note See Note <Benny Crowell MD - Last Filed: 08/28/22 03:22> Discharge Plan Discharge Clinical Impression: Acute bronchitis <STEPHANI Mccarthy - Last Filed: 08/27/22 19:55> Patient Disposition: Home, Self-Care <STEPHANI Mccarthy - Last Filed: 08/27/22 19:55> Instructions: Acute Bronchitis (ED) <STEPHANI Mccarthy - Last Filed: 08/27/22 19:55> Additional Instructions: Take antibiotics inhaler and prednisone as prescribed Cough drops as prescribed Follow with PCP if not better <STEPHANI Mccarthy - Last Filed: 08/27/22 19:55> Prescriptions: New prednisone 20 mg tablet 40 mg PO DAILY Qty: 10 0RF codeine-guaifenesin 10-100 mg/5 mL liquid 10 ml PO Q6H PRN (Reason: cough) Qty: 237 0RF cefuroxime axetil 500 mg tablet 500 mg PO BID Qty: 20 0RF albuterol sulfate [ProAir HFA] 90 mcg/actuation HFA aerosol inhaler 2 puff inhalation Q4-6H PRN (Reason: shortness of breath or wheezing) Qty: 8.5 0RF No Action doxycycline hyclate 100 mg capsule 100 mg PO BID 10 Days Qty: 20 0RF amlodipine 5 mg tablet 5 mg PO DAILY Qty: 10 0RF oxycodone-acetaminophen [Percocet] 5-325 mg tablet 1 tab PO Q8H PRN (Reason: pain) Qty: 14 0RF <STEPHANI Mccarthy - Last Filed: 08/27/22 19:55>
[2022-08-27 19:48] VITALS: BP 134/96; PULSE 105; RESP 16; TEMP 38.4; O2SAT 98; BMI 30.7
[2022-08-27 19:51] LABS: Hematocrit 48.3 % (42.0-52.0); Hemoglobin 16.2 g/dl (14.0-18.0); Mean Corpuscular HGB Conc 33.5 g/dl (31.0-36.0); Mean Corpuscular Hemoglobin 26.9 pg (27.0-33.0); Mean Corpuscular Volume 80.2 fL (80.0-98.0); Mean Platelet Volume 9.9 fL (9.4-12.4); Platelet Count 178 X10*3/uL (160-400); Red Blood Count 6.02 X10*6/uL (4.60-5.80); Red Cell Distribution Width 13.3 % (11.0-16.0); White Blood Count 12.1 X10*3/uL (4.8-10.8)
[2022-08-27 20:09] LABS: Alanine Aminotransferase 25 U/L (0-40); Albumin Level 4.4 g/dL (3.5-5.0); Alkaline Phosphatase 63 U/L (39-117); Anion Gap 16 (12-20); Aspartate Amino Transferase 19 U/L (5-37); Bilirubin Total 0.8 mg/dL (0.0-1.0); Blood Urea Nitrogen 11 mg/dL (9-16); Carbon Dioxide 22 mmol/L (22-29); Chloride 105 mmol/L (96-108); Creatinine Clr Calc Pharmacy 80.9; Estimated Glomerular Filt Rate > 60; Glucose Random 99 mg/dL (60-115); Potassium 3.8 mmol/L (3.3-5.1); Sodium 139 mmol/L (135-145); Total Protein 7.4 g/dL (6.5-8.0)
[2022-08-27 20:14] LABS: COVID-19 Test Negative (Negative); IDNOW Serial# 08D9AD1C; IDNOW Serial# BCCEAD1C; Influenza A Negative (Negative); Influenza B2 Negative (Negative)
[2022-08-27 20:17] LABS: Troponin-I High Sensitivity < 2.7 ng/L (<3.5-35.0)
[2022-08-28] VITALS (7 sets, daily range): BP systolic 110–140; BP diastolic 59–87; PULSE 96–140; RESP 16–18; TEMP 37.1–38.7; O2SAT 94–97
[2022-08-28] MEDS: Ibuprofen 600 MG TABLET PO (00:33)
--- NOTE | 2022-08-28 00:42 | PC.NURSE ---
MD Isbell notified that pt meets sepsis criteria with elevated WBC count and tachycardia.
[2022-08-28] MEDS: guaiFEN/Codeine SF 200/20/10ML 10 ML LIQUID PO (01:19)
[2022-08-28] MEDS: cefTRIAXone sodium 1 GM in 0.9 % Sodium Chloride 50 ML IV (01:19)
[2022-08-28] MEDS: methylPREDNISolone Sod Succ 125 MG/2 ML VIAL IVPUSH (01:19)
[2022-08-28] MEDS: 0.9 % Sodium Chloride 1,000 ML 999 ML IV (01:19)
[2022-08-28] MEDS: ondansetron HCL 4 MG/2 ML VIAL IVPUSH (01:28)
--- NOTE | 2022-08-28 01:32 | PC.NURSE ---
RN to bedside to evaluate patient as his heart rate was noted to be in the 140s. Upon arrival to bedside pt awake and alert, flushed but without distress noted. He reports feeling terrible adding he has a headache, feels hot and just threw up. Oral temp was 101.6, MD made aware and new orders for tylenol received.
[2022-08-28] MEDS: Acetaminophen 325 MG TABLET 975 MG PO (01:35)
== END 2022-08-28 03:38 | disposition home or self-care (01) ==
PROVIDERS: Physician Assistant; Emergency Provider Internal Medicine
DX: J20.9 Acute bronchitis, unspecified (principal); R05.9 Cough, unspecified; R50.9 Fever, unspecified; R06.2 Wheezing
CPT/HCPCS: 36415; 71045; 80053; 84484; 85027; 87502; 87635; 93005; 94640; 96361; 96374; 96375; 99284; 99285; J0696; J2405; J2930